=== PATIENT | female | born 1950 | race Caucasian/White ===

== ENCOUNTER 2016-10-31 17:00 | Emergency (ER) | payer MEDICARE, OTHER ==
[2016-10-31 17:32] LABS: URINE MUCUS NONE SEEN (Up to 25%)
[2016-10-31 17:33] LABS: URINE APPEARANCE CLOUDY; URINE BILIRUBIN NEGATIVE (NEGATIVE); URINE BLOOD 10 Ery/uL (1+) (NEGATIVE); URINE COLOR YELLOW; URINE GLUCOSE NORMAL (NEGATIVE); URINE KETONE 10mg/dL (1+) (NEGATIVE); URINE LEUKOCYTE ESTERASE 25 WBC/uL (1+) (NEGATIVE); URINE NITRITE NEGATIVE (NEGATIVE); URINE PH 5.5 (5-7); URINE PROTEIN 30mg/dL (1+) (NEG - TRACE); URINE UROBILINOGEN 0.2mg/dL (Normal) (NEG-1mg/dL)
--- NOTE | 2016-10-31 17:40 | ER NURSING DOCUMENTATION ---
Nurse's Notes [facility] Name:Christina Mcmahon Age:66 yrs Sex:Female :1950 Arrival Date:10/31/2016 Time:17:00 Bed3 Private MD:No PCP, Identified Diagnosis:Bladder Infection (UTI) Presentation: 10/31 17:09 Presenting complaint: Patient states: pt is having symptoms of a UTI. Similar to past st experiences. Transition of care: patient was not received from another setting of care. 17:09 Acuity: LORI 4 st 17:09 Method Of Arrival: Private Vehicle st Triage Assessment: 17:10 General: Appears uncomfortable, Behavior is cooperative. Pain: Complains of pain in [facility] [place] and feeling like she has to pee all the time. : Reports burning with urination urgency urinary frequency. Historical: - Allergies: No known drug Allergies; - Home Meds: 1. Nexium Oral 2. Vesicare oral 3. Fosamax Oral - PMHx: GERD; - Tetanus: < 10 years. - Ebola Screening: : Patient denies exposure to infectious person. Patient denies travel to an Ebola-affected area in the 21 days before illness onset. . - Social history: Smoking status: Patient states was never smoker of tobacco. Patient uses alcohol occasionally. Patient/guardian denies using marijuana. Screenin:11 Infectious Disease Risk None. Abuse screen: Denies threats or abuse. Denies injuries st from another. pt feels safe at home. Nutritional screening: No deficits noted. Vital Signs: 17:11 BP 126 / 75; Pulse 95; Temp 97.9; Pulse Ox 96% on R/A; Pain 1/10; st ED Course: 17:01 Patient arrived in ED. ds 17:02 No PCP, Identified is Private Physician. ds 17:03 Lelo Baeza RN is Primary Nurse. st 17:05 Michael Leigh MD is Attending Physician. cd 17:[address] 17:12 Valuables Remains with patient Patient has correct armband on for positive st identification. Administered Medications: No medications were administered Point of Care Testing: Urine Dip: 17:25 pH: 5.5; ; Specific [place]: 1.020; Ketones: Small; Glucose: Negative; Protein: st Positive (+); Leukocytes: Positive; Nitrite: Negative ; Blood: Small (+); Bilirubin: Negative ; Urobilinogen: Normal Outcome: 17:33 Discharge ordered by . remi 17:38 Discharged to home ambulatory. st 17:38 Condition: stable 17:38 Discharge instructions given to patient, Instructed on discharge instructions, follow up and referral plans. medication usage, Prescriptions given X 2. 17:39 Patient left the ED. 11/01 14:42 Discharge F/U Call: Unable to reach: no answer 11/02 10:26 Discharge F/U Call: Spoke with: patient. other: Name: pt is feeling much better st today. Signatures: Lelo Baeza, RN RN st Ernst, Roseanne, Reg Reg Michael Minaya MD MD cd
--- NOTE | 2016-10-31 17:40 | ER PHYSICIAN DOCUMENTATION ---
Physician Documentation [facility] Name:Christina Mcmahon Age:66 yrs Sex:Female :1950 Arrival Date:10/31/2016 Time:17:00 Bed3 Private MD:No PCP, Identified ED Michael Calderón Disposition: 10/31 17:40 Chart complete. cd Disposition: 10/31/16 17:33 Discharged to Home/Self Care. Impression: Bladder Infection (UTI). - Condition is Good. - Discharge Instructions: BLADDER INFECTION, Female (Adult). - Prescriptions for Pyridium 200 mg Oral tablet - take 1 tablet by ORAL route 3 times per day for 2 days; 15 tablet. Cipro 250 mg Oral - take 1 tablet by ORAL route every 12 hours for 7 days; 14 tablet. - Medical Reconciliation form form. - Follow up: Private Physician; When: 7 - 10 days; Reason: Recheck today's complaints, Continuance of care. - Problem is new. - Symptoms are unchanged. HPI: 17:05 This 66 yrs old Female presents to ER via Private Vehicle with complaints of cd Urinary Problem. 17:05 The patient presents with urinary symptoms, dysuria, frequency, hesitancy, urgency. cd Onset: The symptoms/episode began/occurred acutely, today. Associated signs and symptoms: The patient has no apparent associated signs or symptoms. Severity of symptoms: At their worst the symptoms were moderate, in the emergency department the symptoms are unchanged. Historical: - Allergies: No known drug Allergies; - Home Meds: 1. Nexium Oral 2. Vesicare oral 3. Fosamax Oral - PMHx: GERD; - Tetanus: < 10 years. - Ebola Screening: : Patient denies exposure to infectious person. Patient denies travel to an Ebola-affected area in the 21 days before illness onset. . - Social history: Smoking status: Patient states was never smoker of tobacco. Patient uses alcohol occasionally. Patient/guardian denies using marijuana. ROS: 17:10 Positive for urinary symptoms, urinary frequency, burning with urination. cd 17:10 Constitutional: Negative for chills, fever, poor PO intake. 17:10 Abdomen/GI: Negative for abdominal pain, nausea, vomiting. 17:10 Back: Negative for pain at rest. Exam: 17:10 Constitutional: The patient appears alert, awake, non-diaphoretic, non-toxic, well cd developed, well nourished, anxious. 17:10 Abdomen/GI: Palpation: abdomen is soft and non-tender. 17:10 Back: CVA tenderness, is absent. 17:10 : CVA tenderness, is absent, Bladder: distension, is not appreciated, tenderness, that is mild. Vital Signs: 17:11 BP 126 / 75; Pulse 95; Temp 97.9; Pulse Ox 96% on R/A; Pain 1/10; st MDM: 17:05 Patient medically screened. cd 17:10 Data reviewed: vital signs, nurses notes, old medical records, and as a result, I will cd discharge patient, administer antibiotics Cipro. Data interpreted: Pulse oximetry: on room air is 96 %. Interpretation: normal. 17:30 Counseling: I had a detailed discussion with the patient and/or guardian regarding: the cd historical points, exam findings, and any diagnostic results supporting the discharge/admit diagnosis, lab results, the need for outpatient follow up, for a recheck, with the patient's primary care provider, to return to the emergency department if symptoms worsen or persist or if there are any questions or concerns that arise at home. 10/31 18:27 Order name: UA W/ MICRO -CULTURE IF IND EDMS 11/01 07:40 Order name: URINE CULTURE EDMS Dispensed Medications: No medications were administered Point of Care Testing: Urine Dip: 17:25 pH: 5.5; ; Specific [place]: 1.020; Ketones: Small; Glucose: Negative; Protein: st Positive (+); Leukocytes: Positive; Nitrite: Negative ; Blood: Small (+); Bilirubin: Negative ; Urobilinogen: Normal Signatures: Lelo Baeza, RN RN Michael Saucedo MD MD cd
[2016-10-31 18:26] LABS: URINE RBC 0-5/hpf (0-5/hpf); URINE SQUAMOUS EPITHELIAL CELL 0-5/hpf (<= 15/hpf)
== END 2016-10-31 17:40 | disposition home or self-care (01) ==
LOC: ER 17:00
DX: R30.0 Dysuria (principal); N39.0 Urinary tract infection, site not specified; Z79.899 Other long term (current) drug therapy
CPT/HCPCS: 81001; 87086; 99282